=== PATIENT | male | born 1985 | race African-American/Black ===

== ENCOUNTER 2024-06-07 15:49 | Emergency (ER) | payer OTHER ==
[~2024-06-07] VITALS: Ht 175.3 cm; Wt 70.0 kg
[2024-06-07 17:02] LABS: BASOPHILS % 0.6 % (0.0-2.0); EOSINOPHILS % 1.1 % (0.0-5.0); HEMOGLOBIN. 13.8 g/dL (14.0-18.0); LYMPHOCYTES % 24.7 % (20.0-50.0); MEAN CORPUSCULAR HGB CONC 34.5 g/dL (31.0-37.0); MEAN CORPUSCULAR VOLUME 89.9 fL (80.0-94.0); MEAN PLATELET VOLUME 6.5 fl (7.4-10.4); MONOCYTES % 10.8 % (2.0-8.0); NEUTROPHILS % 62.8 % (40.0-76.0); PLATELET 376 x1000/uL (130-400); RED BLOOD CELL COUNT 4.46 mill/uL (4.7-6.1); RED CELL DISTRIBUTION WIDTH 13.2 % (11.6-14.6)
[2024-06-07 17:09] LABS: CHLORIDE 103 mEq/L (98-107); POTASSIUM 3.5 mEq/L (3.5-5.1); SODIUM 140 mEq/L (136-145)
[2024-06-07 17:10] LABS: CARBON DIOXIDE 24 mEq/L (21-32)
[2024-06-07 17:11] LABS: CALCIUM 9.5 mg/dL (8.7-10.4)
[2024-06-07 17:16] LABS: GLUCOSE 83 mg/dL (70-105); UREA NITROGEN BLOOD 9 mg/dL (9-23)
[2024-06-07 17:27] LABS: ETHANOL BLOOD < 10 mg/dL (<10)
[2024-06-07] MEDS: MIDAZOLAM HCL 2 MG/2 ML VIAL IM ONE (17:28)
[2024-06-07] MEDS: OLANZAPINE 10 MG/VIAL IM ONE (17:31)
[2024-06-07] MEDS: LORAZEPAM 1MG TABLET PO ONE (20:15)
[2024-06-07] MEDS: LORAZEPAM 2MG/ML INJ IM ONE (21:57)
[2024-06-07] MEDS: HALOPERIDOL LACTATE 5MG/ML VIAL IM ONE (21:58)
[2024-06-07 22:59] LABS: CLARITY URINE CLEAR (CLEAR); COLOR URINE DARK YELLOW (YELLOW); GLUCOSE URINE NEGATIVE (NEGATIVE); KETONES URINE 1+ (NEGATIVE); LEUKOCYTE ESTERASE URINE NEGATIVE (NEGATIVE); NITRITE URINE NEGATIVE (NEGATIVE); OCCULT BLOOD URINE NEGATIVE (NEGATIVE); PH URINE 7.5 (4.5-8.0); PROTEIN URINE 1+ (NEGATIVE); SPECIFIC GRAVITY URINE 1.029 (1.005-1.030)
[2024-06-07 23:10] LABS: *AMPHETAMINES SCREEN URINE NEGATIVE (NEGATIVE); *BARBITURATES SCREEN URINE NEGATIVE (NEGATIVE); *BENZODIAZEPINES SCREEN URINE PRESUMPTIVE POSITIVE (NEGATIVE); *COCAINE SCREEN URINE NEGATIVE (NEGATIVE); CANNABINOID URINE SCREEN NEGATIVE (NEGATIVE); ECSTASY MDMA SCREEN URINE NEGATIVE (NEGATIVE); METHADONE URINE SCREEN NEGATIVE (NEGATIVE); OPIATES URINE SCREEN NEGATIVE (NEGATIVE); PHENCYCLIDINE URINE SCREEN NEGATIVE (NEGATIVE)
[2024-06-07 23:18] LABS: BACTERIA URINE 2+; RBC URINE NONE SEEN /hpf (0-2); SQUAMOUS EPITHELIAL CELL URINE FEW /lpf (RARE/1+); WBC URINE 0-2 /hpf (0-2)
[2024-06-08] MEDS: DIPHENHYDRAMINE 50MG/ML VIAL IM PRN (05:00)
[2024-06-08] MEDS: HALOPERIDOL LACTATE 5MG/ML VIAL IM ONE (05:00)
[2024-06-08] MEDS: LORAZEPAM 2MG/ML INJ IM ONE ×3 (05:00→14:45)
[2024-06-08] MEDS: OLANZAPINE 10 MG/VIAL IM ONE (09:15)
[2024-06-08] MEDS: LORAZEPAM 1MG TABLET PO ONE (13:01)
[2024-06-08] MEDS: CHLORPROMAZINE HCL 25MG/1ML INJ IM NR ×2 (14:45→21:32)
[2024-06-08] MEDS ORDERED: CHLORPROMAZINE HCL IM ONE ×2 (14:45→19:00)
[2024-06-08] MEDS: OLANZAPINE 5MG TABLET PO SCH (21:00)
[2024-06-09] MEDS: LORAZEPAM 2MG/ML INJ IM ONE ×2 (00:08→06:45)
[2024-06-09] MEDS: HALOPERIDOL LACTATE 5MG/ML VIAL IM ONE ×2 (00:08→06:45)
[2024-06-09] MEDS: DIPHENHYDRAMINE 50MG/ML VIAL IM ONE (06:45)
[2024-06-09] MEDS ORDERED: LORAZEPAM 2MG/ML INJ IM ONE (10:00)
[2024-06-09] MEDS ORDERED: ZIPRASIDONE MESYLATE 20MG/VIAL IM ONE (10:00)
[2024-06-09 16:42] VITALS: O2SAT 98
[2024-06-09] MEDS: ZIPRASIDONE MESYLATE 20MG/VIAL IM NR (17:17)
[2024-06-09] MEDS: LORAZEPAM 2MG/ML INJ IM NR (17:17)
[2024-06-09 18:00] VITALS: BP 138/96; PULSE 98; RESP 16; TEMP 36.7; O2SAT 100
== END 2024-06-09 19:32 ==
LOC: ER 15:49
DX: R46.2 Strange and inexplicable behavior (principal); Z79.899 Other long term (current) drug therapy; Z20.822 Contact with and (suspected) exposure to COVID-19
CPT/HCPCS: 80305; 80048; 81003; 80307; 80329; 80320; 85025; 36415 ×2; 96372 ×3; 99291; 87426; 80061; J3490 ×2; J1630 ×3; J2060 ×3; J2250; Z7610 ×5; J3230; J1200 ×2; J3486; A4606; G0480

== ENCOUNTER 2024-06-16 10:44 | Emergency (ER) | payer OTHER ==
[~2024-06-16] VITALS: Ht 177.8 cm; Wt 83.0 kg
[2024-06-16 11:25] LABS: BASOPHILS % 0.3 % (0.0-2.0); EOSINOPHILS % 1.3 % (0.0-5.0); HEMATOCRIT. 39.1 % (42.0-52.0); HEMOGLOBIN. 12.9 g/dL (14.0-18.0); MEAN CORPUSCULAR HEMOGLOBIN 29.8 pg (28.0-32.0); MEAN CORPUSCULAR VOLUME 90.4 fL (80.0-94.0); MEAN PLATELET VOLUME 6.4 fl (7.4-10.4); NEUTROPHILS % 75.4 % (40.0-76.0); PLATELET 473 x1000/uL (130-400); RED BLOOD CELL COUNT 4.33 mill/uL (4.7-6.1); RED CELL DISTRIBUTION WIDTH 13.3 % (11.6-14.6); WHITE BLOOD COUNT 8.3 x1000/uL (4.5-11.0)
[2024-06-16 11:34] LABS: CHLORIDE 104 mEq/L (98-107); POTASSIUM 3.8 mEq/L (3.5-5.1); SODIUM 138 mEq/L (136-145)
[2024-06-16 11:35] LABS: CALCIUM 8.7 mg/dL (8.7-10.4); CARBON DIOXIDE 25 mEq/L (21-32)
[2024-06-16 11:40] LABS: CREATININE 0.8 mg/dL (0.6-1.3); GLUCOSE 98 mg/dL (70-105); UREA NITROGEN BLOOD 12 mg/dL (9-23)
[2024-06-16 11:42] LABS: ACETAMINOPHEN < 2 ug/mL (10-30)
[2024-06-16 11:53] LABS: ETHANOL BLOOD < 10 mg/dL (<10)
[2024-06-16 12:03] VITALS: O2SAT 98
[2024-06-16] MEDS: MIDAZOLAM HCL 2 MG/2 ML VIAL IM ONE (12:03)
[2024-06-16] MEDS: HALOPERIDOL LACTATE 5MG/ML VIAL IM ONE (12:03)
[2024-06-16 12:56] VITALS: BP 136/70; TEMP 37; O2SAT 98
[2024-06-16 13:43] VITALS: PULSE 82; RESP 18
== END 2024-06-16 14:27 | disposition home or self-care (01) ==
LOC: ER 10:44
DX: F20.9 Schizophrenia, unspecified (principal); F15.90 Other stimulant use, unspecified, uncomplicated; Z79.899 Other long term (current) drug therapy
CPT/HCPCS: 80048; 80307; 80329; 80320; 85025; 36415; 96372; 99291; J1630; J2250; Z7610; G0480

== ENCOUNTER 2024-07-12 06:08 | Emergency (ER) | payer MEDICARE, OTHER ==
[~2024-07-12] VITALS: Ht 167.6 cm; Wt 73.0 kg
[2024-07-12 06:13] VITALS: O2SAT 100
[2024-07-12] MEDS: LORAZEPAM 2MG/ML INJ IM ONE (06:57)
[2024-07-12] MEDS: HALOPERIDOL LACTATE 5MG/ML VIAL IM ONE (06:58)
[2024-07-12 07:05] LABS: CLARITY URINE CLEAR (CLEAR); COLOR URINE YELLOW (YELLOW); GLUCOSE URINE NEGATIVE (NEGATIVE); KETONES URINE NEGATIVE (NEGATIVE); LEUKOCYTE ESTERASE URINE NEGATIVE (NEGATIVE); NITRITE URINE NEGATIVE (NEGATIVE); OCCULT BLOOD URINE NEGATIVE (NEGATIVE); PROTEIN URINE NEGATIVE (NEGATIVE); SPECIFIC GRAVITY URINE 1.027 (1.005-1.030)
[2024-07-12 07:26] LABS: *AMPHETAMINES SCREEN URINE NEGATIVE (NEGATIVE); *BARBITURATES SCREEN URINE NEGATIVE (NEGATIVE); *BENZODIAZEPINES SCREEN URINE NEGATIVE (NEGATIVE); *COCAINE SCREEN URINE NEGATIVE (NEGATIVE); CANNABINOID URINE SCREEN NEGATIVE (NEGATIVE); METHADONE URINE SCREEN NEGATIVE (NEGATIVE); OPIATES URINE SCREEN NEGATIVE (NEGATIVE); PHENCYCLIDINE URINE SCREEN NEGATIVE (NEGATIVE)
[2024-07-12 07:27] LABS: ECSTASY MDMA SCREEN URINE NEGATIVE (NEGATIVE)
[2024-07-12 15:14] LABS: BASOPHILS % 0.4 % (0.0-2.0); DIFFERENTIAL COMMENT 0; EOSINOPHILS % 0.8 % (0.0-5.0); HEMATOCRIT. 40.9 % (42.0-52.0); HEMOGLOBIN. 12.4 g/dL (14.0-18.0); LYMPHOCYTES % 27.8 % (20.0-50.0); MEAN CORPUSCULAR HEMOGLOBIN 28.5 pg (28.0-32.0); MEAN CORPUSCULAR HGB CONC 30.5 g/dL (31.0-37.0); MEAN CORPUSCULAR VOLUME 93.6 fL (80.0-94.0); MEAN PLATELET VOLUME 7.2 fl (7.4-10.4); MONOCYTES % 14.3 % (2.0-8.0); NEUTROPHILS % 56.7 % (40.0-76.0); PLATELET 515 x1000/uL (130-400); RED BLOOD CELL COUNT 4.36 mill/uL (4.7-6.1); RED CELL DISTRIBUTION WIDTH 14.9 % (11.6-14.6); WHITE BLOOD COUNT 7.2 x1000/uL (4.5-11.0)
[2024-07-12 15:22] LABS: CHLORIDE 110 mEq/L (98-107); POTASSIUM 4.2 mEq/L (3.5-5.1); SODIUM 141 mEq/L (136-145)
[2024-07-12 15:23] LABS: CARBON DIOXIDE 23 mEq/L (21-32)
[2024-07-12 15:24] LABS: CALCIUM 9.1 mg/dL (8.7-10.4)
[2024-07-12 15:28] LABS: CREATININE 0.8 mg/dL (0.6-1.3); GLUCOSE 103 mg/dL (70-105)
[2024-07-12 15:29] LABS: ETHANOL BLOOD < 10 mg/dL (<10); UREA NITROGEN BLOOD 10 mg/dL (9-23)
[2024-07-12 15:30] LABS: ACETAMINOPHEN < 2 ug/mL (10-30)
[2024-07-12 21:07] VITALS: BP 135/80; PULSE 85; RESP 18; TEMP 36.8; O2SAT 98
[2024-07-12] MEDS ORDERED: LORAZEPAM 2MG/ML INJ IM STA (21:21)
[2024-07-12] MEDS: DIPHENHYDRAMINE 50MG/ML VIAL IM STA (21:48)
[2024-07-12] MEDS: HALOPERIDOL LACTATE 5MG/ML VIAL IM STA (21:49)
[2024-07-12] MEDS: LORAZEPAM 2MG/ML UD SYRINGE IM NR (22:14)
== END 2024-07-13 02:35 ==
LOC: ER 06:15
DX: R45.851 Suicidal ideations (principal); F25.0 Schizoaffective disorder, bipolar type; Z20.822 Contact with and (suspected) exposure to COVID-19; Z79.899 Other long term (current) drug therapy
CPT/HCPCS: 80048; 81003; 80307; 85025; 36415; 96372; 99291; 87426; G0480; J1200; J1630; J2060; Z7610; 80305; 80320; 80329

== ENCOUNTER 2024-11-19 01:56 | Emergency (ER) | payer MEDICARE, OTHER ==
[~2024-11-19] VITALS: Ht 170.2 cm; Wt 77.0 kg
[2024-11-19] MEDS: DIPHENHYDRAMINE 50MG/ML VIAL IM ONE ×2 (03:06→19:23)
[2024-11-19] MEDS: HALOPERIDOL LACTATE 5MG/ML VIAL IM ONE ×2 (03:06→19:24)
[2024-11-19] MEDS: LORAZEPAM 2MG/ML UD SYRINGE IM NR ×2 (03:07→10:24)
[2024-11-19 03:39] LABS: BASOPHILS % 0.5 % (0.0-2.0); EOSINOPHILS % 1.4 % (0.0-5.0); HEMATOCRIT. 39.2 % (42.0-52.0); HEMOGLOBIN. 13.0 g/dL (14.0-18.0); LYMPHOCYTES % 33.1 % (20.0-50.0); MEAN PLATELET VOLUME 6.8 fl (7.4-10.4); MONOCYTES % 7.6 % (2.0-8.0); NEUTROPHILS % 57.4 % (40.0-76.0); PLATELET 480 x1000/uL (130-400); RED BLOOD CELL COUNT 4.43 mill/uL (4.7-6.1); RED CELL DISTRIBUTION WIDTH 13.9 % (11.6-14.6)
[2024-11-19 03:54] LABS: CREATININE 1.2 mg/dL (0.6-1.3); UREA NITROGEN BLOOD 16 mg/dL (9-23)
[2024-11-19 03:55] LABS: ETHANOL BLOOD < 10 mg/dL (<10)
[2024-11-19 03:56] LABS: CLARITY URINE CLEAR (CLEAR); COLOR URINE YELLOW (YELLOW); GLUCOSE URINE NEGATIVE (NEGATIVE); KETONES URINE NEGATIVE (NEGATIVE); LEUKOCYTE ESTERASE URINE NEGATIVE (NEGATIVE); NITRITE URINE NEGATIVE (NEGATIVE); OCCULT BLOOD URINE NEGATIVE (NEGATIVE); PH URINE 6.5 (4.5-8.0); PROTEIN URINE NEGATIVE (NEGATIVE); SPECIFIC GRAVITY URINE 1.026 (1.005-1.030); UROBILINOGEN URINE 1.0 E.U./dL (0.2-1.0)
[2024-11-19 04:08] LABS: *AMPHETAMINES SCREEN URINE NEGATIVE (NEGATIVE); *BARBITURATES SCREEN URINE NEGATIVE (NEGATIVE); *BENZODIAZEPINES SCREEN URINE NEGATIVE (NEGATIVE); *COCAINE SCREEN URINE NEGATIVE (NEGATIVE); CANNABINOID URINE SCREEN NEGATIVE (NEGATIVE); ECSTASY MDMA SCREEN URINE NEGATIVE (NEGATIVE); METHADONE URINE SCREEN NEGATIVE (NEGATIVE); OPIATES URINE SCREEN NEGATIVE (NEGATIVE); PHENCYCLIDINE URINE SCREEN NEGATIVE (NEGATIVE)
[2024-11-19] MEDS: OLANZAPINE 10 MG/VIAL IM ONE (10:24)
[2024-11-19] MEDS: OLANZAPINE 10 MG/VIAL IM SCH (16:26)
[2024-11-19] MEDS: LORAZEPAM 2MG/ML UD SYRINGE IM SCH (16:26)
[2024-11-19] MEDS: ZIPRASIDONE MESYLATE 20MG/VIAL IM ONE (21:58)
[2024-11-20] MEDS: TRAZODONE HCL 50MG TABLET PO SCH (01:54)
[2024-11-20 06:15] VITALS: O2SAT 99
[2024-11-20 09:49] VITALS: BP 135/71; PULSE 85; RESP 16; TEMP 36.9; O2SAT 100
== END 2024-11-20 09:50 | disposition home or self-care (01) ==
LOC: ER 01:56
DX: R46.89 Other symptoms and signs involving appearance and behavior (principal); Z79.899 Other long term (current) drug therapy; Z20.822 Contact with and (suspected) exposure to COVID-19
CPT/HCPCS: 80305; 80048; 81003; 80307; 80329; 80320; 85025; 36415; 93005; 96372; 99291; 87426; J3490; J1200; J1630; J2060; J3486; G0480